=== PATIENT | female | born 1945 | race Caucasian/White ===

== ENCOUNTER 2020-03-10 13:55 | Outpatient (CLI) | payer MEDICARE, MEDICAID, SELFPAY ==
--- NOTE | ~2020-03-10 | MM_ITS ---
EXAMINATION: MM screening [facility] w vinnie HISTORY: Screening mammogram TECHNIQUE: Craniocaudal and mediolateral oblique 3-D tomosynthesis images were obtained and synthetic 2-D images were generated. CAD analysis was submitted and interpreted. COMPARISON: No prior mammogram is available for comparison at this institution. BREAST PARENCHYMAL COMPOSITION: There are scattered areas of fibroglandular density.. FINDINGS: There is prominent left breast deformity and retraction which is reportedly related to adva ncing of a hematoma 8-9 years ago. Prior mammogram was reportedly performed at [facility]. Comparison wi th prior mammograms is recommended. Otherwise there is no evidence of suspicious mass, calcification, or architectural distortion to sugg est malignancy in either breast. IMPRESSION: 1. Left breast deformity and retraction; recommend comparison with prior mammogram examinations to ev aluate for stability 2. Comparison with prior mammogram examinations is recommended .BI-RADS Category 0: Incomplete: Needs additional imaging evaluation. Reviewed, dictated and finalized at location [facility]. IMPRESSION: 1. Left breast deformity and retraction; recommend comparison with prior mammog gama examinations to evaluate for stability 2. Comparison with prior mammogram examinations is recommended .BI-RADS Category 0: Incomplete: Needs additional imaging evaluation.
== END 2020-03-10 13:56 | disposition home or self-care (01) ==
DX: Z12.31 Encounter for screening mammogram for malignant neoplasm of breast (principal); R92.8 Other abnormal and inconclusive findings on diagnostic imaging of breast
CPT/HCPCS: 77063; 77067